=== PATIENT | female | born 1980 | race Two or more races ===

== ENCOUNTER 2024-02-03 15:31 | Outpatient (RCR) | payer MEDICAID, SELFPAY ==
--- NOTE | 2024-02-07 22:18 | CTCFLWUP_ITS ---
Patient: ROSMERY MILLER : 1980 MR#: [id number] Page 3 of 3 Follow up on : 02/03/2024 NAME: ROSMERY MILLER ACCOUNT: [id number] : 1980 AGE: 43 REFERRING PHYSICIAN: Kelly Aldridge MD PRIMARY PHYSICIAN: Kelly Aldridge MD REASON FOR CONSULTATION: Atypical ductal hyperplasia of the left breast (10/21/2023) Family history of breast cancers. REASON FOR TODAY?S VISIT: I am seeing Ms. Miller for the first time in consultation here at [facility]. Ms. Miller is accompanied by her sister as well as her boyfriend. Ms. Miller was recently found to have microcalcifications in the left breast on mammograms. Stereotactic b iopsy showed atypical ductal hyperplasia. She has seen Dr. Clem Stiles, general surgeon who is planning on doing wide excision. Today Ms. Miller is clinically doing well. Denies any new complaints. Denies any cough, chest pain, a bdominal pain or leg cramps. Ambulating well without any help. Has good appetite and good energy le vels. 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 08/12/2023: Ms. Miller had bilateral screening mammograms which showed last 12 heterogeneous calcificati ons in the left breast 09/04/2023: Ms. Miller had a diagnostic mammogram of the left breast which showed multiple clustered frances rphous heterogeneous calcifications. 10/21/2023: Ms. Miller had a left breast core biopsy 11/05/2023: Ms. Miller has seen Dr. Clem Cortez, general surgeon here in town. He recommended wide excision of the microcalcifications in the left breast. Patient is thinking about it. 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 ashwagandha extract - 500 mg 1 Capsule Daily 2. cyanocobalamin (vitamin B-12) - 1,000 mcg 1 tab Daily 3. Vitamin D - 2,000 unit 1 Capsule Daily 4. ZyrTEC - 10 mg 1 Capsule Daily?Palabra Meds? Medications Last Reconciled by Hansa Sifuentes RN on 11/18/2023 ALLERGIES: No Known Drug Allergies REVIEW OF SYSTEMS: Neurological: No headache, seizures or blurring of vision. Gastrointestinal: No nausea, vomiting, diarrhea or constipation. Cardiovascular: No palpitations or angina pains. Respiratory: No cough, chest pain or shortness of breath. PHYSICAL EXAMINATION: VITAL SIGNS: Temperature?97.6, B/P?159/93, Height?62?inches, Oxygen?Saturation?99% Weight?164?lbs (Ch romero?since?10/29/23:?14?lbs) PAIN: 0 - No pain Alert and oriented x 4 MOUTH: Oral cavity is dry. CHEST: Clear to auscultation. No wheezes or rales audible. CARDIAC: Rhythm regular, no murmurs or gallops present. ABDOMEN: Soft. No hepatomegaly. No splenomegaly. EXTREMITIES: No pedal edema or cyanosis. ASSESSMENT: 1. Atypical ductal hyperplasia of the left breast (10/21/2023) 2. Family history of breast cancers. 3. Premenopausal status PLAN: 1. Brca negative Patient is upset that her marker is not seen She is planning for lumpectomy Requesting mammogram ? ordered Will see her after surgery Electronically signed by joseluis Electronically Signed by: {Object.Sanct_ID*PnP.NameFL@M}, {Object.Sanct_ID*PnP.Suffix@U} D: {Object.Sanct_Date} T: {Object.Sanct_Time} CC: PCP: Kelly Aldridge Referring: Kelly Aldridge This document was completed utilizing speech recognition software. Grammatical errors, random word in sertions, pronoun errors, and incomplete sentences are an occasional consequence of this system due t o software limitations, ambient noise, and hardware issues. Any formal questions or concerns about th e content, text or information contained within the body of this dictation should be directly address ed to the provider for clarification.
== END 2024-02-13 23:59 | disposition home or self-care (01) ==
LOC: SCTC 15:31
PROVIDERS: PCP Nurse Practitioner Family; Referring Provider Nurse Practitioner Family; Visit Provider Internal Medicine Hematology & Oncology
DX: N60.92 Unspecified benign mammary dysplasia of left breast (principal); Z80.3 Family history of malignant neoplasm of breast
CPT/HCPCS: 99212; G0463

== ENCOUNTER 2024-03-01 06:11 | Day surgery (SDC) | payer MEDICAID, SELFPAY ==
[2024-02-29 08:48] VITALS: BMI 29.9
--- NOTE | 2024-02-29 09:07 | SUR.PREOP ---
Ambulance will be here at 0745 to pickle pumper patient for mammogram.
[2024-02-29 10:08] LABS: HCG Qualitative,Urine Negative
[2024-02-29 10:09] LABS: Basophils % (Auto) 1 % (0-2.5); Eosinophils # (Auto) 0.1 Thou/mm3 (0.0-0.5); Eosinophils % (Auto) 1 % (0-10); Hematocrit 44.4 % (36.0-46.0); Hemoglobin 15.4 g/dL (12.0-16.0); Immature Granulocytes % (Auto) 0 % (0-0); Immature Granulocytes Auto 0.02 Thou/mm3 (0.00-0.00); Lymphocytes % (Auto) 40 % (10-50); Mean Corpuscular HGB Conc 34.7 g/dl (31.0-37.0); Mean Corpuscular Hemoglobin 30.7 pg (25.0-35.0); Mean Corpuscular Volume 89 fL (80-100); Monocytes # (Auto) 0.6 Thou/mm3 (0.0-0.8); Monocytes % (Auto) 7 % (0-12); Neutrophils # (Auto) 3.8 Thou/mm3 (1.8-7.7); Neutrophils % (Auto) 50 % (37-80); Nucleated Red Blood Cell % 0 /100 WBC (0); Platelet Count 324 Thou/mm3 (140-440); RDW Standard Deviation 39.8 fL (36.4-46.3); Red Blood Count 5.01 Miln/mm3 (4.00-5.20); White Blood Count 7.5 Thou/mm3 (3.6-11.0)
[2024-02-29 10:10] LABS: Partial Thromboplastin Time 26.5 Seconds (22.0-36.0); Prothrombin Time 11.3 Seconds (9.0-12.2)
[2024-02-29 10:14] LABS: Alanine Aminotransferase 22 U/L (10-49); Albumin, Serum 4.7 gm/dL (3.5-5.0); Albumin/Globulin Ratio 1.5 (1.2-2.2); Alkaline Phosphatase 62 U/L (46-116); Anion Gap 8 (7-16); Aspartate Amino Transferase 18 U/L (0-34); BUN/Creatinine Ratio 11 Ratio (12-20); Bilirubin,Total 0.4 mg/dL (0.3-1.2); Blood Urea Nitrogen 9 mg/dL (9-23); Chloride 104 mMol/L (98-107); Creatinine (Component) 0.8 mg/dL (0.6-1.3); Estimated Creatinine Clearance 86.5 mL/min (>60); Globulin 3.2 gm/dL (2.3-3.5); Glucose 98 mg/dL (74-106); Osmolality,Calculated 276 (275-295); Potassium 3.9 mMol/L (3.4-5.1); Sodium 139 mMol/L (136-145); Total Protein 7.9 gm/dL (5.7-8.2); eGFR > 60 See Note
[2024-03-01] VITALS (7 sets, daily range): BP systolic 117–137; BP diastolic 73–87; PULSE 73–85; RESP 14–19; TEMP 36.1–36.6; O2SAT 95–99; BMI 29.6
[2024-03-01] MEDS: RINGERS LACTATED 1000 ML 1,000 ML 20 ML IV (07:00)
--- NOTE | 2024-03-01 08:15 | XR_ITS ---
Examination: Diagnostic digital mammography, unilateral, left Computer aided detection 3-D breast Tomosynthesis, unilateral Date and time of exam: March 01, 2024 0808 hours INDICATIONS: History left breast biopsy, family history, mother breast cancer Technique: Nonmagnified MLO, CC views of the left breast have been obtained, reconstructed from 3-D Tomosynthesis images. R2 computer aided detection program utilized for evaluation of suspicious masses and/or abnormal calcifications. 3-D Tomosynthesis images obtained. Findings: The breast is heterogeneously dense, which may obscure small masses 20 mm focal asymmetry upper outer left breast separate from the breast biopsy marker upper outer left breast Benign calcifications Impression: BI-RADS category 0: Incomplete: Need additional imaging evaluation Recommend follow-up spot tomographic views 20 mm focal asymmetry upper outer left breast as well as left breast sonography to complete the workup Consider baseline right mammogram follow-up
--- NOTE | 2024-03-01 08:30 | XR_ITS ---
Examination: Preop needle localization biopsy-positive lesion outer left breast CC MLO left mammographic views Exam date and time: March 01, 2024 0859 hours INDICATIONS: Positive cytology for biopsy microcalcifications outer left breast TECHNIQUE AND FINDINGS: Informed consent provided. Timeout performed. Skin prepped over the breast and sterile drape applied, hand hygiene 1% lidocaine administered for local anesthesia Utilizing mammographic guidance 7 cm Kopan's needle placed immediately adjacent to the breast biopsy marker 1 cc methylene blue introduced and acquired advanced and needle withdrawn Estimated blood loss 0 cc IMPRESSION: Successful preoperative mammographic needle localization biopsy-positive lesion outer left breast
--- NOTE | 2024-03-01 11:49 | XR_ITS ---
Examination: Breast tissue specimen single view TECHNIQUE: Single mammographic view Suppressed tissue specimen Exam date and time: March 01, 2024 1208 hours INDICATIONS: Status post excision biopsy-positive lesion for atypical cells left breast, preop mammographic needle localization this morning FINDINGS: Single mammographic view breast tissue specimen contains the breast biopsy marker as well as microcalcifications in the center of the breast specimen IMPRESSION: Satisfactory breast specimen
--- NOTE | 2024-03-01 12:33 | SUR.PHASEI ---
1233: Pt. AAOx4, vitals stable, breathing unlabored, no complaint of pain or nausea, dressing to left breast CDI, no active bleed noted, report received from Presley PERKINS and MD Gregory.
--- NOTE | 2024-03-01 12:35 | PD.SUROPNT ---
Date of Procedure 03/01/24 Pre Op Diagnosis Microcalcifications over the upper and outer quadrant of the left breast diagnosed with atypical ductal hyperplasia upon core biopsy Post Op Diagnosis Same Procedure Guidewire localization and excision of the lesion surrounding the guidewire with microcalcifications over the upper and outer quadrant of the left breast Findings Patient is found to have no palpable abnormality over the left breast Procedure Description After the patient was taken to the x-ray suite she had guidewire localization performed by Dr. Faustin localizing the area over the upper and outer quadrant. These calcifications were not seen very well during this localization. But he was able to see the clip that was applied during the biopsy and methylene blue was injected by him. Patient was then brought to the operating room and was given LMA general anesthesia. Left breast and chest was washed with ChloraPrep solution and draped in a sterile manner. Timeout is performed. Then I made a curved incision along the skin crease just parallel to the areola on the left breast. I divided the subcutaneous tissue and using the methylene blue I dissected out the tissues surrounding the guidewire tip. Specimen radiograph was obtained which showed the marker as well as some microcalcifications. The anterior tissue was submitted for pathological examination. The breast tissue was closed in layers using 3-0 chromic for the deeper layer and superficial layer. Then injected half percent Marcaine for analgesia over the suture line the skin was closed with subcuticular 4-0 Monocryl and a dressing was applied with Adaptic fluff and compression with Gino bandage. Patient tolerated procedure well Anesthesia other Pathology / specimen Other (Microcalcifications left breast with a guidewire) IVF Infused 300 Estimated Blood Loss 30 Surgeon Jody Lambert MD Surgical Staff Operation Date: 03/01/24 11:25 <No data on this case meets the specified criteria>
--- NOTE | 2024-03-01 12:44 | SUR.PHASEI ---
pt awake, alert, able to follow commands, breathing unlabored, dressing to left breast clean, dry, and intact with breast binder in place, report from Hortencia PERKINS
--- NOTE | 2024-03-01 13:30 | SUR.PHASEII ---
pt awake, alert, able to follow commands, breathing unlabored, dressing to left breast clean, dry, and intact with breast binder in place, discharge instructions given with significant other present, all questions answered, pt discharged via wheelchair with all belongings and copies of discharge paperwork.
== END 2024-03-01 13:30 | disposition home or self-care (01) ==
PROVIDERS: Anesthesiology; PCP Physician Assistant; Referring Provider Surgery; Visit Provider Surgery
PROC: (CPT 19301; principal; 2024-03-01 11:10)
DX: N60.22 Fibroadenosis of left breast (principal); R92.0 Mammographic microcalcification found on diagnostic imaging of breast
CPT/HCPCS: 19125; 19100; 36415; 76098; 77061; 77065; 80053; 81025; 85025; 85610; 85730; A4217; A4648; A4649; J1100; J2250; J2405; J2704; J3010; J3490; J7120; G0279

== ENCOUNTER 2024-05-19 15:09 | Outpatient (RCR) | payer MEDICAID, SELFPAY ==
--- NOTE | 2024-05-18 06:30 | CTCFLWUP_ITS ---
Patient: ROSMERY MILLER : 1980 Page 6 of 6 FOLLOW UP NOTE DATE OF SERVICE: 05/16/2024 NAME: ROSMERY MILLER ACCOUNT: [id number] : 1980 AGE: 43 INTERVAL HISTORY: Patient was seen in the clinic to follow-up on breast tissue obtained at the locally wide excision. 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 08/12/2023: Ms. Miller had bilateral screening mammograms which showed last 12 heterogeneous calcifications in the left breast 09/04/2023: Ms. Miller had a diagnostic mammogram of the left breast which showed multiple clustered amorphous heterogeneous calcifications. 10/21/2023: Ms. Miller had a left breast core biopsy 11/05/2023: Ms. Miller has seen Dr. Clem Cortez, general surgeon here in town. He recommended wide excision of the microcalcifications in the left breast. Patient is thinking about it. 02/20/2024I-RADS category 0: Incomplete: Need additional imaging evaluation Recommend follow-up spot tomographic views 20 mm focal asymmetry upper outer left breast as well as left breast sonography to complete the workup Consider baseline right mammogram follow-up Ordered ultrasound of the left breast Patient says that she follows with Dr. 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 ashwagandha extract - 500 mg 1 Capsule Daily 2. cyanocobalamin (vitamin B-12) - 1,000 mcg 1 tab Daily 3. Vitamin D - 2,000 unit 1 Capsule Daily 4. ZyrTEC - 10 mg 1 Capsule Daily Medications Last Reconciled by Taryn Holland MA on 05/16/2024 ALLERGIES: No Known Drug Allergies REVIEW OF SYSTEMS: A complete 14-point review of systems was performed and is negative except as noted in interval history. PHYSICAL EXAMINATION: VITAL SIGNS: Temperature?99.3, B/P?123/79, Oxygen?Saturation?97% Weight?148?lbs PAIN: 0 - No pain ECOG Performance Status: 0 - Asymptomatic and fully active Alert and oriented x 4 MOUTH: Oral cavity is dry. CHEST: Clear to auscultation. No wheezes or rales audible. CARDIAC: Rhythm regular, no murmurs or gallops present. ABDOMEN: Soft. No hepatomegaly. No splenomegaly. EXTREMITIES: No pedal edema or cyanosis. LABORATORY DATA: I have personally reviewed and interpreted each of the patient?s relevant lab tests, abnormal findings are below: Date 02/29/24 ??GLUCOSE,RANDOM?(mg/dL) 98 ??BLOOD?UREA?NITROGEN?(mg/dL) 9 ??CREATININE?(mg/dL) 0.80 ??SODIUM?(mmol/L) 139 ??POTASSIUM?(mmol/L) 3.9 ??CHLORIDE?(mmol/L) 104 ??CrCl?(CandG)?(ml/min) 88.24 ??AST/SGOT?(Unit/L) 18 ??ALT/SGPT?(Unit/L) 22 ??ALKALINE?PHOSPHATASE?(Unit/L) 62 ??BILIRUBIN,?TOTAL?(mg/dL) 0.4 ??PROTEIN?TOTAL?(gm/dl) 7.9 ??ALBUMIN,?SERUM?(gm/dl) 4.7 ??GLOBULIN?(gm/dl) 3.2 ??ALBUMIN/GLOBULIN?RATIO 1.5 ??CALCIUM,?SERUM?(mg/dL) 10.0 ??CALCIUM?SERUM?(CORRECTED)?(mg/dL) 10.0 ASSESSMENT/PLAN: Focal atypical ductal hyperplasia Patient is seen in the clinic after lumpectomy Patient's initial pathology did not reveal any atypia I was called by Dr. Nj and a new addended report was sent to my office after Ms. Miller's visit No documentation done after the visit and now shows the diagnosis of focal atypical ductal hyperplasia confirmed by [facility] I will schedule Ms. Miller see Ms. Miller back again and discuss role of antiendocrine therapy in atypical ductal hyperplasia Atypical ductal hyperplasia can increase the risk of breast cancer recurrence by about 25% Will discuss starting antiendocrine therapy with the tamoxifen for 5 years Will continue to monitor patient with the routine mammograms ORDERS: CBC CMP left breast ultrasound RETURN TO CLINIC: [facility] first appointment BILLING AND COMPLIANCE: I reviewed external records from providers outside my specialty as summarized above. I spent a total of 50 minutes on this patient?s care on the day of their visit excluding time spent related to any billed procedures. This time includes time spent with the patient as well as time spent documenting in the medical record, reviewing patients records and tests, obtaining history, placing orders, communicating with other healthcare professionals, counseling the patient, family or caregiver, and/or care coordination for the diagnoses above. Electronically Signed by: {Object.Sanct_ID*PnP.NameFL@M}, {Object.Sanct_ID*PnP.Suffix@U} D: {Object.Sanct_Date} T: {Object.Sanct_Time} CC: PCP: Kike Izquierdo Referring: Kike Izquierdo This document was completed utilizing speech recognition software. Grammatical errors, random word insertions, pronoun errors, and incomplete sentences are an occasional consequence of this system due to software limitations, ambient noise, and hardware issues. Any formal questions or concerns about the content, text or information contained within the body of this dictation should be directly addressed to the provider for clarification.
--- NOTE | 2024-05-23 01:21 | CTCFLWUP_ITS ---
Patient: ROSMERY MILLER : 1980 Page 5 of 6 FOLLOW UP NOTE DATE OF SERVICE: 05/19/2024 NAME: ROSMERY MILLER ACCOUNT: [id number] : 1980 AGE: 43 INTERVAL HISTORY: Patient was seen in the clinic to follow-up on breast tissue obtained at the locally wide excision. Patient's pathology changed to atypical ductal hyperplasia on second opinion and patient is here to follow-up. 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 08/12/2023: Ms. Miller had bilateral screening mammograms which showed last 12 heterogeneous calcifications in the left breast 09/04/2023: Ms. Miller had a diagnostic mammogram of the left breast which showed multiple clustered amorphous heterogeneous calcifications. 10/21/2023: Ms. Miller had a left breast core biopsy 11/05/2023: Ms. Miller has seen Dr. Clem Cortez, general surgeon here in town. He recommended wide excision of the microcalcifications in the left breast. Patient is thinking about it. 02/20/2024I-RADS category 0: Incomplete: Need additional imaging evaluation Recommend follow-up spot tomographic views 20 mm focal asymmetry upper outer left breast as well as left breast sonography to complete the workup Consider baseline right mammogram follow-up Ordered ultrasound of the left breast Patient says that she follows with Dr. 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 ashwagandha extract - 500 mg 1 Capsule Daily 2. cyanocobalamin (vitamin B-12) - 1,000 mcg 1 tab Daily 3. tamoxifen - 10 mg 1 tab Daily 4. Vitamin D - 2,000 unit 1 Capsule Daily 5. ZyrTEC - 10 mg 1 Capsule Daily Medications Last Reconciled by Taryn Holland MA on 05/19/2024 ALLERGIES: No Known Drug Allergies REVIEW OF SYSTEMS: A complete 14-point review of systems was performed and is negative except as noted in interval history. PHYSICAL EXAMINATION: VITAL SIGNS: PAIN: 0 - No pain ECOG Performance Status: 0 - Asymptomatic and fully active Alert and oriented x 4 LABORATORY DATA: I have personally reviewed and interpreted each of the patient?s relevant lab tests, abnormal findings are below: Date 02/29/24 ??WHITE?BLOOD?COUNT?(Thou/mm3) 7.5 ??RED?BLOOD?COUNT?(Miln/mm3) 5.01 ??HEMOGLOBIN?(gm/dl) 15.4 ??HEMATOCRIT?(%) 44.4 ??PLATELET?COUNT?(Thou/mm3) 324 ??NEUTROPHILS?%,?AUTO?(%) 50 ??LYMPH?%,?AUTO?(%) 40 ??NEUTROPHILS,?AUTO?(Thou/mm3) 3.8 ??GLUCOSE,RANDOM?(mg/dL) 98 ??BLOOD?UREA?NITROGEN?(mg/dL) 9 ??CREATININE?(mg/dL) 0.80 ??SODIUM?(mmol/L) 139 ??POTASSIUM?(mmol/L) 3.9 ??CHLORIDE?(mmol/L) 104 ??CrCl?(CandG)?(ml/min) 88.24 ??AST/SGOT?(Unit/L) 18 ??ALT/SGPT?(Unit/L) 22 ??ALKALINE?PHOSPHATASE?(Unit/L) 62 ??BILIRUBIN,?TOTAL?(mg/dL) 0.4 ??PROTEIN?TOTAL?(gm/dl) 7.9 ??ALBUMIN,?SERUM?(gm/dl) 4.7 ??GLOBULIN?(gm/dl) 3.2 ??ALBUMIN/GLOBULIN?RATIO 1.5 ??CALCIUM,?SERUM?(mg/dL) 10.0 ??CALCIUM?SERUM?(CORRECTED)?(mg/dL) 10.0 ASSESSMENT/PLAN: Focal atypical ductal hyperplasia Patient is seen in the clinic after lumpectomy Patient's initial pathology did not reveal any atypia I was called by Dr. Nj and a new addended report was sent to my office after Ms. Miller's visit No documentation done after the visit and now shows the diagnosis of focal atypical ductal hyperplasia confirmed by [facility] Atypical ductal hyperplasia can increase the risk of breast cancer recurrence by about 25% Discussed antiendocrine therapy with tamoxifen for 5 years Will continue to monitor patient with the routine mammograms Patient willing to take tamoxifen 10 mg daily Discussed with her that tamoxifen 10 mg at found to be noninferior to 20 mg and is better than no medication. Patient very reluctant but want to try tamoxifen 10 mg. Advised daily exercise and take calcium and vitamin D daily ORDERS: Tamoxifen ordered RETURN TO CLINIC: 2 months to see tolerance BILLING AND COMPLIANCE: I reviewed external records from providers outside my specialty as summarized above. I spent a total of 50 minutes on this patient?s care on the day of their visit excluding time spent related to any billed procedures. This time includes time spent with the patient as well as time spent documenting in the medical record, reviewing patients records and tests, obtaining history, placing orders, communicating with other healthcare professionals, counseling the patient, family or caregiver, and/or care coordination for the diagnoses above. Electronically Signed by: Darshan Miguel MD T: 1:19 AM CC: PCP: Kike Izquierdo Referring: Kike Izquierdo This document was completed utilizing speech recognition software. Grammatical errors, random word insertions, pronoun errors, and incomplete sentences are an occasional consequence of this system due to software limitations, ambient noise, and hardware issues. Any formal questions or concerns about the content, text or information contained within the body of this dictation should be directly addressed to the provider for clarification.
== END 2024-06-13 23:59 | disposition home or self-care (01) ==
LOC: SCTC 15:09
PROVIDERS: PCP Family Medicine; Referring Provider Family Medicine; Visit Provider Internal Medicine Hematology & Oncology
DX: N60.92 Unspecified benign mammary dysplasia of left breast (principal)
CPT/HCPCS: 99212; G0463

== ENCOUNTER 2024-08-09 05:45 | Day surgery (SDC) | payer MEDICAID, SELFPAY ==
[2024-08-05 07:09] VITALS: BMI 28.0
--- NOTE | 2024-08-05 08:50 | ESHP_ITS ---
RE: MADELINE MILLER : 1980 DATE OF ADMISSION: 08/09/2024 HISTORY OF PRESENT ILLNESS: This is a 43-year-old 4, para 3-0-1-3 who is multiparous and desires voluntary sterilization. She also has cervical dysplasia and needs to undergo LEEP cone biopsy procedure as well as abnormal uterine bleeding for which she will undergo an endometrial ablation procedure. ALLERGIES: NO KNOWN DRUG ALLERGIES. MEDICATIONS: None. PAST MEDICAL HISTORY: Atypical ductal hyperplasia, left breast. Asthma, endometriosis. PAST SURGICAL HISTORY: Left breast lumpectomy 02/2024, delivery, laparoscopy. FAMILY HISTORY: Coagulopathy, breast cancer, migraine headaches, diabetes, hypertension. REVIEW OF SYSTEMS: She denies any chest pain, palpitations, cough, fever, shortness of breath, or lower extremity pain. PHYSICAL EXAMINATION: VITAL SIGNS: Blood pressure is 130/72, heart rate 62, respirations 18, temperature 98.6, weight 154 pounds. HEENT: Oropharynx and sclerae are clear. LUNGS: Clear to auscultation bilaterally. HEART: Regular rate and rhythm. ABDOMEN: Old Pfannenstiel scar noted. EXTREMITIES: Nontender. SKIN: No gross rashes or lesion. NEUROLOGIC: No focal deficit. ASSESSMENT: Multiparity, desires voluntary sterilization, abnormal uterine bleeding, cervical dysplasia. PLAN: Laparoscopic bilateral salpingectomy, hysteroscopy, fractional dilatation and curettage, NovaSure endometrial ablation, and LEEP cone biopsy of the cervix. Informed consent was obtained. The patient was made aware of the risks, complications, alternatives, and benefits of the proposed procedure and she agrees. She is aware of the failure rate and the increased risk of tubal ectopic gestation if occurs. She is aware that vasectomy is simpler, easier and safer with a lower failure rate, but her male partner declines that option. She is aware of the risk of injury to bowel, bladder, uterus, ureters, adjacent organs, pulmonary embolism, deep vein thrombosis, injury to the vessels of the abdominal wall, hematoma, abscess, wound infection, wound dehiscence, pelvic infection, reoperation to repair injury to internal organs, anesthesia complications, the possibility that a laparotomy needs to be performed to complete the procedure or control bleeding and the possibility the procedure is not able to be completed due to severe adhesions or technical difficulties. DT: 07:42:27 TT: 08:48:00 Ref: [id number] - TID: [id number] MTDD
[2024-08-05 13:24] LABS: Basophils % (Auto) 0 % (0-2.5); Eosinophils # (Auto) 0.1 Thou/mm3 (0.0-0.5); Eosinophils % (Auto) 1 % (0-10); Hematocrit 37.1 % (36.0-46.0); Hemoglobin 13.1 g/dL (12.0-16.0); Immature Granulocytes % (Auto) 0 % (0-0); Immature Granulocytes Auto 0.01 Thou/mm3 (0.00-0.00); Lymphocytes # (Auto) 2.8 Thou/mm3 (1.0-4.8); Lymphocytes % (Auto) 41 % (10-50); Mean Corpuscular HGB Conc 35.3 g/dl (31.0-37.0); Mean Corpuscular Hemoglobin 31.7 pg (25.0-35.0); Mean Corpuscular Volume 90 fL (80-100); Monocytes # (Auto) 0.5 Thou/mm3 (0.0-0.8); Monocytes % (Auto) 7 % (0-12); Neutrophils # (Auto) 3.5 Thou/mm3 (1.8-7.7); Neutrophils % (Auto) 51 % (37-80); Nucleated Red Blood Cell % 0 /100 WBC (0); Platelet Count 310 Thou/mm3 (140-440); RDW Standard Deviation 38.6 fL (36.4-46.3); Red Blood Count 4.13 Miln/mm3 (4.00-5.20); White Blood Count 6.8 Thou/mm3 (3.6-11.0)
[2024-08-05 13:36] LABS: Alanine Aminotransferase 28 U/L (10-49); Albumin/Globulin Ratio 1.5 (1.2-2.2); Alkaline Phosphatase 51 U/L (46-116); Anion Gap 9 (7-16); Aspartate Amino Transferase 67 U/L (0-34); BUN/Creatinine Ratio 13 Ratio (12-20); Beta HCG,Quantitative < 1 mIU/mL (<5.0); Bilirubin,Total 0.5 mg/dL (0.3-1.2); Blood Urea Nitrogen 12 mg/dL (9-23); Calcium 8.2 mg/dL (8.3-10.6); Calcium (Corrected) 8.2 mg/dL (8.5-10.1); Carbon Dioxide 27.5 mMol/L (20.0-31.0); Chloride 106 mMol/L (98-107); Creatinine (Component) 0.9 mg/dL (0.6-1.3); Estimated Creatinine Clearance 74.4 mL/min (>60); Globulin 2.6 gm/dL (2.3-3.5); Glucose 89 mg/dL (74-106); Osmolality,Calculated 281 (275-295); Partial Thromboplastin Time 26.7 Seconds (22.0-36.0); Potassium 3.8 mMol/L (3.4-5.1); Prothrombin Time 11.4 Seconds (9.0-12.2); Sodium 142 mMol/L (136-145); Total Protein 6.6 gm/dL (5.7-8.2); eGFR > 60 See Note
[2024-08-09] VITALS (8 sets, daily range): BP systolic 111–140; BP diastolic 79–95; PULSE 62–85; RESP 13–20; TEMP 36.3–36.8; O2SAT 93–100; BMI 28.2
--- NOTE | 2024-08-09 08:57 | SUR.PHASEI ---
0857: Pt. wakes to name then drifts back to sleep, vitals stable, breathing unlabored, no signs of distress, x3 dermabond sites to ABD CDI, no active bleed noted, peripad in place, CDI, report recieved from Erika Garrett RN.
--- NOTE | 2024-08-09 09:00 | PD.GYNPROC ---
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 Date of procedure: 08/09/24 Procedure Performed: Laparoscopic bilateral salpingectomy Hysteroscopy, fractional dilatation curettage and NovaSure endometrial ablation LEEP cone biopsy of the cervix Indication: Multiparity desires voluntary sterilization Abnormal uterine bleeding Cervical dysplasia Pre-Op diagnosis: Multiparity desires voluntary sterilization Abnormal uterine bleeding Cervical dysplasia Post-Op diagnosis: Multiparity desires voluntary sterilization Abnormal uterine bleeding Cervical dysplasia Anesthesia type: General Procedure description: After proper informed consent was obtained and the patient made aware the risk complication alternative benefits of the proposed procedure she was taken the operating room where she underwent induction of general anesthesia she is placed in dorsal lithotomy position she was prepped and draped you sterile fashion a timeout was performed a acorn uterine manipulator was placed. Attention was then turned to the abdomen where the physician regowned and gloved in a 5 mm incision was made in the umbilical fold with tenting up the abdomen a Veress needle was inserted saline confirmed intra-abdominal placement artificial pneumoperitoneum was created to 12 mmHg. The trocar was inserted after the Veress needle was removed. The laparoscope connected to the video camera was then utilized to visualize the pelvis. A 2nd and 3rd incision was made 1 was made in the suprapubic region 2 cm above the symphysis pubis another was made in the left lower quadrant. Through these 5 mm incisions 5 mm trocars were inserted under direct visualization of the laparoscope using the [place] Geck grasper the right fallopian tube was grasped at the fimbriated end and using the 1136 harmonic scalpel the right salpingectomy was performed and specimen sent to pathology. Attention was then turned to the left fallopian tube which was grasped with the fimbriated end and using the harmonic scalpel the left salpingectomy was performed. Hemostasis was achieved. Carbon oxide was removed from the peritoneal cavity the incisions were infiltrated with Marcaine half percent with epinephrine. The incisions were closed with 4-0 Monocryl and covered with Dermabond. Attention was then turned to the vagina where the uterine manipulator was then removed. The cervix was dilated to accommodate the 5.5 mm Omni hysteroscope. The history hysteroscopy was performed and there was no endometrial polyps endocervical polyps or submucous myomas or distortions or irregularities of the uterine cavity. Using the Rlorkian curette the endocervix was curetted and specimen sent to pathology. Using the 5 mm curette the uterine cavity was curetted and specimen sent to pathology. The NovaSure catheter was plugged into the controller. The uterus sounded to 9.0 cm anteverted. The cervical length was 3.5 cm. The uterine cavity length was 5.5 cm. The NovaSure catheter was appropriately seated in the uterine cavity and the width meter read 2.8 cm. The carbon oxide cavity integrity assessment test was performed. The cavity was intact. The ablation was performed for a total of 49 seconds at 85 W before the controller shut off. The catheter was removed from the uterine cavity the array was redeployed and found to be complete and intact. The LEEP cone biopsy was performed after the cervix was infiltrated with dilute vasopressin using 15 cc. The LEEP specimen was obtained and inked at 12:00 using the 2.0 x 1.5 cm loop electrode. The Top-Hat specimen was performed using the 1.0 x 1.0 loop electrode. There was no bleeding at the end of the procedure. She was reversed from general anesthesia after all instruments were removed from the vagina. She was transferred to the recovery in stable condition. She tolerated the procedure well. Counts were correct. Specimen: left tube, right tube and other (Endocervical and Endometrial currettings. LEEP Cone specimen Cervix. Top hat specimen. ) Estimated blood loss (ml): 25 Surgical staff Operation Date: 08/09/24 07:30 Case Staff MUSIC DEPARTMENT CHAIR: Marcelo De Paz RNconductor/brakeman: Tequila Macias Diagnosis Discharge Diagnosis (1) Abnormal uterine bleeding: Status: Acute (2) S/P endometrial ablation: Status: Acute (3) S/P LEEP: Status: Acute (4) Sterilization: Status: Acute Problem List Completed Was Problem List Reviewed/Reconciled?: Yes
[2024-08-09] MEDS: fentaNYL CIT INJ 50 mCg/ML AMP 2ML IVP (09:06)
[2024-08-09] MEDS: HYDROmorphone INJ 2 MG/ML VIAL 0.5 MG IVP ×2 (09:13→09:32)
--- NOTE | 2024-08-09 10:00 | SUR.PHASEII ---
1000: Pt. AAOx4, vitals stable, breathing unlabored, no complaint of pain or nausea, peripad in place CDI, x3 dermabond sites to ABD CDI, no active bleed noted, pt. tolerated sips of water well, pt. ambulated to wheelchair with steady gait and no assist, no complications. Gave discharge instructions to the pt. and her ride, both verbalized understanding and had no further questions. Pt. left with all personal belongings.
== END 2024-08-09 10:00 | disposition home or self-care (01) ==
PROVIDERS: PCP Physician Assistant; Referring Provider Specialist; Visit Provider Specialist
PROC: 0U5B8ZZ Destruction of Endometrium, Via Natural or Artificial Opening Endoscopic (ICD-10-PCS; CPT 58563; principal; 2024-08-09 07:30)
PROC: (CPT 58720; 2024-08-09 07:30)
PROC: 0UBC7ZZ Excision of Cervix, Via Natural or Artificial Opening (ICD-10-PCS; CPT 57522; 2024-08-09 07:30)
DX: Z30.2 Encounter for sterilization (principal); Z64.1 Problems related to multiparity; N87.9 Dysplasia of cervix uteri, unspecified; J45.909 Unspecified asthma, uncomplicated; Z80.3 Family history of malignant neoplasm of breast; Z82.49 Family history of ischemic heart disease and other diseases of the circulatory system; Z83.3 Family history of diabetes mellitus
CPT/HCPCS: 57522; 58563; 58661; 36415; 80053; 84702; 85025; 85610; 85730; 86850; 86900; 86901; A4217; A4649; J0131; J0690; J1100; J1171; J2250; J2371; J2405; J2598; J2704; J3010; J3490; A9270; J0665

== ENCOUNTER 2024-10-10 14:57 | Outpatient (RCR) | payer MEDICAID, SELFPAY ==
--- NOTE | 2024-10-17 05:32 | CTCFLWUP_ITS ---
Patient: ROSMERY MILLER : 1980 Page 5 of 7 FOLLOW UP NOTE DATE OF SERVICE: 10/10/2024 NAME: ROSMERY MILLER ACCOUNT: [id number] : 1980 AGE: 44 INTERVAL HISTO Patient says she did not start taking tamoxifen. She says that she has done her research and she is very worried about the side effects and do not want to start taking medicine. She want to follow holistic ways to reduce her risk of for breast cancer. She is taking calcium and vitamin D3. ONCOLOGY HISTORY: DIAGNOSIS: Unspecified lump in the left breast, unspecified quadrant [ICD10] N63.20 Atypical ductal hyperplasia of the left breast 10/21/2023,,, Family history of breast cancer TREATMENT HISTORY: Care?Plan Start?Date Cycle Day Intent HISTORY OF PRESENT ILLNESS: Rosmery Miller is a 44-year-old ENG speaking Other female with following history. 08/12/2023: Ms. Miller had bilateral screening mammograms which showed last 12 heterogeneous calcifications in the left breast 09/04/2023: Ms. Miller had a diagnostic mammogram of the left breast which showed multiple clustered amorphous heterogeneous calcifications. 10/21/2023: Ms. Miller had a left breast core biopsy 11/05/2023: Ms. Miller has seen Dr. Clem Cortez, general surgeon here in town. He recommended wide excision of the microcalcifications in the left breast. Patient is thinking about it. 02/20/2024I-RADS category 0: Incomplete: Need additional imaging evaluation Recommend follow-up spot tomographic views 20 mm focal asymmetry upper outer left breast as well as left breast sonography to complete the workup Consider baseline right mammogram follow-up Ordered ultrasound of the left breast Patient says that she follows with Dr. 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 ashwagandha extract - 500 mg 1 Capsule Daily 2. cyanocobalamin (vitamin B-12) - 1,000 mcg 1 tab Daily 3. tamoxifen - 10 mg 1 tab Daily 4. Vitamin D - 2,000 unit 1 Capsule Daily 5. ZyrTEC - 10 mg 1 Capsule Daily Medications Last Reconciled by Estela Mcgee MA on 10/10/2024 ALLERGIES: No Known Drug Allergies REVIEW OF SYSTEMS: A complete 14-point review of systems was performed and is negative except as noted in interval history. PHYSICAL EXAMINATION: VITAL SIGNS: Temperature?98.2, B/P?131/84, Oxygen?Saturation?98% PAIN: 0 - No pain Alert and oriented x 4 LABORATORY DATA: I have personally reviewed and interpreted each of the patient?s relevant lab tests, abnormal findings are below: Date 02/29/24 08/05/24 ??WHITE?BLOOD?COUNT?(Thou/mm3) 7.5 6.8 ??RED?BLOOD?COUNT?(Miln/mm3) 5.01 4.13 ??HEMOGLOBIN?(gm/dl) 15.4 13.1 ??HEMATOCRIT?(%) 44.4 37.1 ??PLATELET?COUNT?(Thou/mm3) 324 310 ??NEUTROPHILS?%,?AUTO?(%) 50 51 ??LYMPH?%,?AUTO?(%) 40 41 ??NEUTROPHILS,?AUTO?(Thou/mm3) 3.8 3.5 ??GLUCOSE,RANDOM?(mg/dL) 98 89 ??BLOOD?UREA?NITROGEN?(mg/dL) 9 12 ??CREATININE?(mg/dL) 0.80 0.90 ??SODIUM?(mmol/L) 139 142 ??POTASSIUM?(mmol/L) 3.9 3.8 ??CHLORIDE?(mmol/L) 104 106 ??CrCl?(CandG)?(ml/min) 88.24 86.30 ??AST/SGOT?(Unit/L) 18 67?H ??ALT/SGPT?(Unit/L) 22 28 ??ALKALINE?PHOSPHATASE?(Unit/L) 62 51 ??BILIRUBIN,?TOTAL?(mg/dL) 0.4 0.5 ??PROTEIN?TOTAL?(gm/dl) 7.9 6.6 ??ALBUMIN,?SERUM?(gm/dl) 4.7 4.0 ??GLOBULIN?(gm/dl) 3.2 2.6 ??ALBUMIN/GLOBULIN?RATIO 1.5 1.5 ??CALCIUM,?SERUM?(mg/dL) 10.0 8.2?L ??CALCIUM?SERUM?(CORRECTED)?(mg/dL) 10.0 8.2?L ASSESSMENT/PLAN: Focal atypical ductal hyperplasia Patient is seen in the clinic after lumpectomy Patient's initial pathology did not reveal any atypia I was called by Dr. Nj and a new addended report was sent to my office after Ms. Miller's visit No documentation done after the visit and now shows the diagnosis of focal atypical ductal hyperplasia confirmed by [facility] Atypical ductal hyperplasia can increase the risk of breast cancer recurrence by about 25% Discussed antiendocrine therapy with tamoxifen for 5 years Will continue to monitor patient with the routine mammograms Did not take tamoxifen which was prescribed at last visit Patient is very reluctant to take any medicine understand the increased risk for her breast cancer Will continue to monitor Advised diet and exercise Again discussed many options for antiendocrine therapy Advised to take tamoxifen at a reduced dose ORDERS: Order # Description [id number] 3D Mammogram Screening + Bilateral [id number] Comprehensive Metabolic Panel - 12 + CBC with Auto Diff [id number] Follow Up 1 Year RETURN TO CLINIC: I reviewed the diagnosis, prognosis, and recommended treatment/procedure options with the patient (and/or their legal telemarketing sales representative), including the potential benefits, risks, side effects and alternative therapies. We also discussed the option of no treatment and the possibility of clinical trial participation, if applicable. All questions were addressed, and they demonstrated understanding. They provided informed consent to proceed with the proposed plan of care. BILLING AND COMPLIANCE: I reviewed external records from providers outside my specialty as summarized above. I spent a total of 50 minutes on this patient?s care on the day of their visit excluding time spent related to any billed procedures. This time includes time spent with the patient as well as time spent documenting in the medical record, reviewing patients records and tests, obtaining history, placing orders, communicating with other healthcare professionals, counseling the patient, family or caregiver, and/or care coordination for the diagnoses above. Electronically Signed by: Darshan Miguel MD T: 5:29 AM CC: PCP: Kike Izquierdo Referring: Kike Izquierdo This document was completed utilizing speech recognition software. Grammatical errors, random word insertions, pronoun errors, and incomplete sentences are an occasional consequence of this system due to software limitations, ambient noise, and hardware issues. Any formal questions or concerns about the content, text or information contained within the body of this dictation should be directly addressed to the provider for clarification.
== END 2024-10-13 23:59 | disposition home or self-care (01) ==
LOC: SCTC 14:57
PROVIDERS: PCP Family Medicine; Referring Provider Family Medicine; Visit Provider Internal Medicine Hematology & Oncology
DX: N60.92 Unspecified benign mammary dysplasia of left breast (principal); Z80.3 Family history of malignant neoplasm of breast
CPT/HCPCS: 99212; G0463

== ENCOUNTER 2025-02-16 10:25 | Outpatient (RCR) | payer MEDICAID, SELFPAY ==
--- NOTE | 2025-02-16 12:25 | CTCFLWUP_ITS ---
Patient: ROSMERY MILLER : 1980 Page 5 of 7 FOLLOW UP NOTE DATE OF SERVICE: 02/16/2025 NAME: ROSMERY MILLER ACCOUNT: [id number] : 1980 AGE: 44 INTERVAL HISTORY: Patient doing well. Not taking tamoxifen. Continue to do exercise and takes calcium and vitamin D3 ONCOLOGY HISTORY: DIAGNOSIS: Unspecified lump in the left breast, unspecified quadrant [ICD10] N63.20 Atypical ductal hyperplasia of the left breast 10/21/2023,,, Family history of breast cancer TREATMENT HISTORY: Care?Plan Start?Date Cycle Day Intent HISTORY OF PRESENT ILLNESS: Rosmery Miller is a 44-year-old ENG speaking Other female with following history. 08/12/2023: Ms. Miller had bilateral screening mammograms which showed last 12 heterogeneous calcifications in the left breast 09/04/2023: Ms. Miller had a diagnostic mammogram of the left breast which showed multiple clustered amorphous heterogeneous calcifications. 10/21/2023: Ms. Miller had a left breast core biopsy 11/05/2023: Ms. Miller has seen Dr. Clem Cortez, general surgeon here in town. He recommended wide excision of the microcalcifications in the left breast. Patient is thinking about it. 02/20/2024I-RADS category 0: Incomplete: Need additional imaging evaluation Recommend follow-up spot tomographic views 20 mm focal asymmetry upper outer left breast as well as left breast sonography to complete the workup Consider baseline right mammogram follow-up Ordered ultrasound of the left breast Patient says that she follows with Dr. 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 cyanocobalamin (vitamin B-12) - 1,000 mcg 1 tab Daily 2. Vitamin D - 2,000 unit 1 Capsule Daily Medications Last Reconciled by Taryn Holland MA on 02/16/2025 ALLERGIES: No Known Drug Allergies REVIEW OF SYSTEMS: A complete 14-point review of systems was performed and is negative except as noted in interval history. PHYSICAL EXAMINATION: VITAL SIGNS: Temperature?99.3, B/P?115/77, Oxygen?Saturation?98% Weight?159?lbs PAIN: 0 - No pain ECOG Performance Status: 0 - Asymptomatic and fully active Alert and oriented x 4 LABORATORY DATA: I have personally reviewed and interpreted each of the patient?s relevant lab tests, abnormal findings are below: Date 02/29/24 08/05/24 ??WHITE?BLOOD?COUNT?(Thou/mm3) 7.5 6.8 ??RED?BLOOD?COUNT?(Miln/mm3) 5.01 4.13 ??HEMOGLOBIN?(gm/dl) 15.4 13.1 ??HEMATOCRIT?(%) 44.4 37.1 ??PLATELET?COUNT?(Thou/mm3) 324 310 ??NEUTROPHILS?%,?AUTO?(%) 50 51 ??LYMPH?%,?AUTO?(%) 40 41 ??NEUTROPHILS,?AUTO?(Thou/mm3) 3.8 3.5 ??GLUCOSE,RANDOM?(mg/dL) 98 89 ??BLOOD?UREA?NITROGEN?(mg/dL) 9 12 ??CREATININE?(mg/dL) 0.80 0.90 ??SODIUM?(mmol/L) 139 142 ??POTASSIUM?(mmol/L) 3.9 3.8 ??CHLORIDE?(mmol/L) 104 106 ??CrCl?(CandG)?(ml/min) 88.24 86.30 ??AST/SGOT?(Unit/L) 18 67?H ??ALT/SGPT?(Unit/L) 22 28 ??ALKALINE?PHOSPHATASE?(Unit/L) 62 51 ??BILIRUBIN,?TOTAL?(mg/dL) 0.4 0.5 ??PROTEIN?TOTAL?(gm/dl) 7.9 6.6 ??ALBUMIN,?SERUM?(gm/dl) 4.7 4.0 ??GLOBULIN?(gm/dl) 3.2 2.6 ??ALBUMIN/GLOBULIN?RATIO 1.5 1.5 ??CALCIUM,?SERUM?(mg/dL) 10.0 8.2?L ??CALCIUM?SERUM?(CORRECTED)?(mg/dL) 10.0 8.2?L ASSESSMENT/PLAN: Focal atypical ductal hyperplasia Patient is seen in the clinic after lumpectomy Patient's initial pathology did not reveal any atypia I was called by Dr. Nj and a new addended report was sent to my office after Ms. Miller's visit No documentation done after the visit and now shows the diagnosis of focal atypical ductal hyperplasia confirmed by [facility] Atypical ductal hyperplasia can increase the risk of breast cancer recurrence by about 25% Discussed antiendocrine therapy with tamoxifen for 5 years Will continue to monitor patient with the routine mammograms Did not take tamoxifen which was prescribed at last visit Patient is very reluctant to take any medicine understand the increased risk for her breast cancer Will continue to monitor Advised diet and exercise Again discussed many options for antiendocrine therapy Advised to take tamoxifen at a reduced dose RETURN TO CLINIC: I reviewed the diagnosis, prognosis, and recommended treatment/procedure options with the patient (and/or their legal hobbies and crafts sales representative), including the potential benefits, risks, side effects and alternative therapies. We also discussed the option of no treatment and the possibility of clinical trial participation, if applicable. All questions were addressed, and they demonstrated understanding. They provided informed consent to proceed with the proposed plan of care. BILLING AND COMPLIANCE: I reviewed external records from providers outside my specialty as summarized above. I spent a total of 50 minutes on this patient?s care on the day of their visit excluding time spent related to any billed procedures. This time includes time spent with the patient as well as time spent documenting in the medical record, reviewing patients records and tests, obtaining history, placing orders, communicating with other healthcare professionals, counseling the patient, family or caregiver, and/or care coordination for the diagnoses above. Electronically Signed by: Darshan Miguel MD T: 12:23 PM CC: PCP: Darshan Miguel Referring: Darshan Miguel This document was completed utilizing speech recognition software. Grammatical errors, random word insertions, pronoun errors, and incomplete sentences are an occasional consequence of this system due to software limitations, ambient noise, and hardware issues. Any formal questions or concerns about the content, text or information contained within the body of this dictation should be directly addressed to the provider for clarification.
== END 2025-03-15 23:59 | disposition home or self-care (01) ==
LOC: SCTC 10:25
PROVIDERS: PCP Physician Assistant; Referring Provider Internal Medicine Hematology & Oncology; Visit Provider Internal Medicine Hematology & Oncology
DX: N60.92 Unspecified benign mammary dysplasia of left breast (principal); Z90.12 Acquired absence of left breast and nipple
CPT/HCPCS: 99212; G0463